=== PATIENT | female | born 1955 | race Caucasian/White ===

== ENCOUNTER → 2017-01-04 | Outpatient (CLI) | payer OTHER ==
[~2017-01-04] MED LIST: CITA10TA4 PO; CITA20TA4 PO; DICL1GEL TOP; ESTR0.5T PO; ESTR1TAB PO; HYDR-3288 PO; LISI-515 PO; PANT20 PO; PARO10S PO; PRIN20TA2 PO
[2017-01-04 09:57] LABS: BASOPHIL # 0.1 TH/MM3 (0-0.2); BASOPHIL % 1.4 % (0.0-2.0); EOSINOPHIL # 0.1 TH/MM3 (0-0.4); EOSINOPHIL % 2.6 % (0.0-4.0); HEMATOCRIT 41.3 % (35.0-46.0); HEMO FLAGS DIFF FINAL; LYMPH % 40.1 % (9.0-44.0); LYMPHOCYTE # 1.7 TH/MM3 (1.0-4.8); MEAN CELL VOLUME 94.8 FL (80.0-100.0); MEAN CORPUSCULAR HEMOGLOBIN 31.8 PG (27.0-34.0); MEAN CORPUSCULAR HGB CONC 33.5 % (32.0-36.0); NEUT % 46.9 % (16.0-70.0); PLATELET COUNT 183 TH/MM3 (150-450); RED BLOOD COUNT 4.35 MIL/MM3 (4.00-5.30); WHITE BLOOD COUNT 4.3 TH/MM3 (4.0-11.0)
--- NOTE | 2017-01-04 15:58 | EKG ---
Date Performed: 01/04/2017 Time Performed: 10:11:05 PTAGE: 61 years EKG: Sinus rhythm LOW QRS VOLTAGE IN PRECORDIAL LEADS POSSIBLE ANTERIOR MYOCARDIAL INFARCTION, PROBABLY OLD BORDERLINE ECG PREVIOUS TRACING : 09/30/11 @ 2251 DOCTOR: Michael Tate Interpretating Date/Time 01/04/2017 15:57:09
== END ==
LOC: CPRE 09:15
PROVIDERS: ATTEND Orthopaedic Surgery Orthopaedic Surgery of the Spine
DX: Z01.812 Encounter for preprocedural laboratory examination (principal); Z01.810 Encounter for preprocedural cardiovascular examination
CPT/HCPCS: 36415; 85025; 93005

== ENCOUNTER → 2017-01-12 | Day surgery (SDC) | payer OTHER ==
[~2017-01-12] VITALS: Ht 166.4 cm; Wt 77.6 kg
[~2017-01-12] MED LIST changes: +ACETAMINOPHEN 1000 MG/100 ML 100 ML IV ONE; +ACETAMINOPHEN/HYDROcodone 325 MG/7.5 MG TAB PO PRN; +BETAMETHASONE SOD PHOS/ACETATE SUSP 30 MG/5 ML VIAL ONE; +BUPIVACAINE/EPINEPHRINE 0.25% 50 ML VIAL ONE; +CHLORHEXIDINE GLUCONATE 2 % 1 PACK (2 CLOTHS) TOPICAL PRN; -DICL1GEL TOP; +DO NOT ADM ANY ANTICOAGULANT DRUGS PRN; -ESTR0.5T PO; +GELATIN 12 MM/7 MM FOAM ONE; +GENTAMICIN SULFATE 80 MG/2 ML VIAL ONE; +HYDROmorphone HCL PF 2 MG/ML VIAL ONE; +INSULIN HUMAN REGULAR 1,000 UNITS/10 ML VIAL SQ PRN; +LACTATED RINGER'S 1000 ML IV PRN; +METOPROLOL TARTRATE 25 MG TAB PO PRN; +MORPHINE SULFATE 2 MG/ML INJ IV PRN; -PARO10S PO; +POVIDONE IODINE 5% (ANTISEPSIS KIT) 4 APPLICATIONS EACH NARE PRN; +POVIDONE IODINE 7.5% SCRUB 118 ML BOTTLE TOPICAL SCH; -PRIN20TA2 PO; +SODIUM CHLORID 0.9% 500 ML IV PRN
--- NOTE | 2017-01-12 06:08 | MH ---
cc: JOSE A SHAHID DATE OF ADMISSION: 01/12/2017 ADMISSION DIAGNOSIS Lumbar spinal stenosis, lumbar spine. HISTORY This is a 61-year-old female with significant left hip and leg pain. Investigative studies shows evidence of spinal stenosis at L4 5 with significant left greater than right lateral recess stenosis. She has significant left L5 nerve root compromise. She presents for surgical treatment. PAST MEDICAL HISTORY, SOCIAL HISTORY, FAMILY HISTORY, REVIEW OF SYSTEMS See attached notes. PHYSICAL EXAMINATION GENERAL: An average build female in moderate distress with her back, left hip and leg. HEENT: Normocephalic, atraumatic. Pupils equal, round, reactive to light and accommodation. Extraocular motions intact. NECK: Supple. CHEST: Clear. HEART: Regular rate and rhythm. ABDOMEN: Soft, nontender with normoactive bowel sounds. MUSCULOSKELETAL EXAMINATION: Thoracolumbar spine restricted motion, pain with range of motion. Straight leg raise is positive on the left. IMPRESSION Lumbar spinal stenosis, L4 5. Left lumbosacral radiculopathy PLAN Left lumbar laminectomy L4, L5, lateral recess decompression, use of dilation port and microscope. CONSENT There are risks with surgery including infection, bleeding, loss of motion, continued pain, need for further surgery, neurologic and vascular injury. The patient understands these issues and wishes to press on with the surgery as outlined above. MD MO Du/CELINA /11:27 PM /6:02 AM [facility]
[2017-01-12] MEDS: ceFAZolin 2 GM PREMIX 50 ML IV SCH ×2 (13:16→13:42)
--- NOTE | 2017-01-12 14:21 | PD.OP ---
cc: Roge Arango MD Operative Report Date of Surgery: Jan 12, 2017 Preoperative Diagnosis: Lumbar spinal stenosis, L4 5. Left lumbosacral radiculopathy Postoperative Diagnosis: Same Procedure: Lumbar laminectomy L4 5, from the left, lateral recess decompression, use of dilation port and microscope Anesthesia: Gen. Surgeon: Roge Arango Operator Receptionist(s): YORDAN Parnell Operation and Findings: EBL: 50 cc INDICATION: Is patient is a 61-year-old female with significant left leg pain with weakness. Investigative studies shows evidence of spinal stenosis L4 5 which considered be high-grade. She has significant left sided lateral recess stenosis compressing the left L5 nerve root. She presents for surgical treatment NOTE: Massiel Parnell PA-C was present for the entire surgical procedure as my medical assistant cardiology. In my medical opinion her skill and care was necessary for the proper management of this patient. PROCEDURE: The patient was brought to the operating room and anesthetized in the supine position. The patient was rolled to a prone position on a Gallo frame on a Bala table. All pressure points were protected in the back was scrubbed with alcohol followed by Hibiclens followed by ChloraPrep and draped sterilely. A timeout was done and antibiotics were given. AP and lateral radiographic images were used to identify the proper levels and perform skin markings. We started from the left side at the L4 5 level. A paramedian incision was made and an off-midline fascial incision was made. A dilating system was placed down to the interlaminar space and held provisionally to the side of the table. The microscope was brought into the field. A high-speed bur under the microscope was used to perform a partial bilateral laminectomy from that side. A lateral recess decompression on the left side was accomplished using straight and angled Kerrison punches. A partial medial facetectomy was accomplished. The crossing and exiting nerve roots were completely decompressed. The wound was irrigated copiously. A small piece of Gelfoam with Celestone was placed into the epidural space. Hemostasis was controlled. The deep fascia was approximated with interrupted 0 Vicryl suture subcutaneous suture with 2-0 Vicryl suture and skin with running intradermal 3-0 Vicryl followed by Dermabond. A field block with local anesthesia was utilized. A sterile dressing was applied. The sponge count and needle counts and instrument counts were all correct. The patient tolerated the procedure well as taken to the recovery room in satisfactory condition. FINDINGS: There was a high-grade lateral recess stenosis affecting most of the left L5 nerve root. The decompression was very satisfactory. No complication was appreciated. Roge Arango MD Jan 12, 2017 14:21
--- NOTE | 2017-01-12 15:00 | RADRPT ---
EXAM DATE/TIME: 01/12/2017 13:41 [facility] COMPARISON: No previous studies available for comparison. INDICATIONS : L4-L5 laminectomy. Level localization. MEDICAL HISTORY : None. SURGICAL HISTORY : None. ENCOUNTER: Initial ACUITY: 1 day PAIN SCORE: Non-responsive. LOCATION: Lumbar spine. FINDINGS: Single lateral view of lumbar spine was performed. A localization device was placed posteriorly at th e second from the bottom disc space level which I suspect is L4-5. CONCLUSION: Level localization L4-5. Jr Glez MD on January 12, 2017 at 14:58 Board Certified Radiologist. This report was verified electronically.
[2017-01-12 16:10] VITALS: BP 111/48; PULSE 76; RESP 16; TEMP 97.6; O2SAT 96
== END | disposition home or self-care (01) ==
LOC: HSDC 09:18
PROVIDERS: ATTEND Orthopaedic Surgery Orthopaedic Surgery of the Spine
DX: M48.061 Spinal stenosis, lumbar region without neurogenic claudication (principal); M54.17 Radiculopathy, lumbosacral region; I10 Essential (primary) hypertension
CPT/HCPCS: 00630; 63047; 72020; 76000; J0131; J0690; J1170; J1580; J0702